=== PATIENT | female | born 1980 | race Caucasian/White ===

== ENCOUNTER 2017-07-10 11:05 | Inpatient (IN) | payer OTHER ==
[~2017-07-10] VITALS: Ht 162.6 cm; Wt 78.0 kg
[2017-07-10 11:11] VITALS: Ht 162.6 cm; Wt 78.0 kg
[2017-07-10 12:26] LABS: BASOPHIL % 0.1 % (0-2); PLATELET COUNT 252 x10^3mcL (130-400)
[2017-07-10 12:38] LABS: CARBON DIOXIDE 15.7 mmol/L (21-32); CHLORIDE SERUM 102 mmol/L (98-107); CREATININE SERUM 0.6 mg/dL (0.6-1.0); GFR1 > 60 mL/min; GLUCOSE SERUM 149 mg/dL (74-106); POTASSIUM SERUM 3.9 mmol/L (3.5-5.1); SODIUM SERUM 135 mmol/L (136-145)
[2017-07-10 12:39] LABS: AMPHETAMINE QUAL UR NONE DETECTED (NEG <=1000)
[2017-07-10 12:44] LABS: ALBUMIN 3.4 g/dL (3.4-5.0); ALKALINE PHOSPHATASE 83 U/L (46-116); AST/SGOT 27 U/L (15-37); BILIRUBIN TOTAL 0.4 mg/dL (0.20-1.00); TOTAL PROTEIN, SERUM 7.4 g/dL (6.4-8.2)
[2017-07-10 12:46] LABS: AMYLASE 257 U/L (25-115); LIPASE 1908 IU/L (73-393)
[2017-07-10 12:59] LABS: ALT/SGPT 23 U/L (14-59)
[2017-07-10 13:14] LABS: RED CELL DISTRIBUTION WIDTH 17.7 % (11.5-14.5)
[2017-07-10 15:23] LABS: CHOLESTEROL 175 mg/dL (<200); FREE T4 1.12 ng/dL (0.76-1.46); FREE THYROXINE INDEX 2.8 ug/dL (1.4-4.5); MAGNESIUM 1.8 mg/dL (1.8-2.4); PHOSPHOROUS 2.7 mg/dL (2.5-4.9); T4(THYROXINE) 8.2 ug/dL (4.7-13.3)
[2017-07-10 15:24] LABS: CHOLESTEROL/HDL RATIO 9.7; HDL CHOLESTEROL 18 mg/dL (40-60); TRIGLYCERIDES 1220 mg/dL (<150)
[2017-07-10 16:11] LABS: UA SPECIFIC GRAVITY >=1.030 (1.005-1.035); microscopic required? YES; urine erythrocyte TRACE (NEGATIVE)
[2017-07-10 16:20] LABS: RED BLOOD CELLS 3.64 M/mm3 (4.10-5.10)
[2017-07-10 16:21] LABS: TOTAL IRON BINDING CAPACITY 323 ug/dL (250-450)
[2017-07-10 16:22] LABS: IRON 23 ug/dL (50-170)
[2017-07-10 16:49] VITALS: BP 127/80
[2017-07-10 17:10] VITALS: BP 127/80
[2017-07-10 22:04] VITALS: BP 129/78
[2017-07-11 05:49] VITALS: BP 109/63
[2017-07-11 06:31] LABS: CALCIUM 7.8 mg/dL (8.5-10.1); CARBON DIOXIDE 24.3 mmol/L (21-32); CHLORIDE SERUM 107 mmol/L (98-107); CREATININE SERUM 0.5 mg/dL (0.6-1.0); GFR1 > 60 mL/min; GLUCOSE SERUM 101 mg/dL (74-106); MAGNESIUM 2.1 mg/dL (1.8-2.4); PHOSPHOROUS 2.4 mg/dL (2.5-4.9); POTASSIUM SERUM 3.4 mmol/L (3.5-5.1); SODIUM SERUM 140 mmol/L (136-145)
[2017-07-11 07:35] LABS: BASOPHIL % 0.4 % (0-2); PLATELET COUNT 225 x10^3mcL (130-400)
[2017-07-11 07:42] LABS: RED CELL DISTRIBUTION WIDTH 17.5 % (11.5-14.5)
[2017-07-11 09:14] VITALS: BP 109/63
[2017-07-11 09:35] VITALS: BP 118/76
[2017-07-11 12:49] VITALS: BP 122/82
[2017-07-11] MEDS ORDERED: ATORVASTATIN CA40 M1 PO (13:53)
[2017-07-11] MEDS ORDERED: LOP600 PO (13:53)
[2017-07-11] MEDS ORDERED: AURYXIA1 GM PO (14:05)
== END 2017-07-11 15:05 | disposition home or self-care (01) | DRG 439 ==
LOC: ED 11:05 → DU 14:11 → MU 07-11 10:35
PROVIDERS: Emergency Medicine; Family Medicine
DX: K85.90 Acute pancreatitis without necrosis or infection, unspecified (principal); E87.1 Hypo-osmolality and hyponatremia; D64.9 Anemia, unspecified; Z83.3 Family history of diabetes mellitus; E78.2 Mixed hyperlipidemia; E83.51 Hypocalcemia
CPT/HCPCS: 83880; 84439; 85378; G0480; J0696; J7030; Q0092; Q9967